=== PATIENT | female | born 1990 | race Caucasian/White ===

== ENCOUNTER 2018-03-23 08:03 | Emergency (ER) | payer BC ==
--- NOTE | 2018-03-23 08:22 | CPEKG ---
Heart Rate: 87 RR Interval: 690 P-R Interval: 156 QRSD Interval: 84 QT Interval: 392 QTC Interval: 472 P Monon: 50 QRS Monon: 81 T Wave Monon: 55 EKG Severity - NORMAL ECG - EKG Impression: SINUS RHYTHM Electronically Signed By: Manny Walters 26-Mar-2018 07:27:55
[2018-03-23] MEDS ORDERED: LIDOCAINE 2% VISCOUS 15 ML UDCUP PO ONE (08:24)
[2018-03-23] MEDS ORDERED: HYOSCYAMINE SULFATE 0.125 MG TAB PO ONE (08:24)
[2018-03-23] MEDS ORDERED: MAG HYDROX/AL HYDROX/SIMETH 30 ML UDCUP PO ONE (08:24)
--- NOTE | 2018-03-23 08:28 | EDPHY ---
H & P Time Seen by Provider: 03/23/18 08:18 HPI/ROS: CHIEF COMPLAINT: Chest pain HISTORY OF PRESENT ILLNESS: Patient is a 28-year-old female who presents emergency department with substernal chest pain. Patient states that she is visiting from [place]. She is currently med student. She came out to [place] for wedding. Last night at about 4:00 a.m. She awoke from sleep with substernal chest discomfort. She states it initially worsened when she lays on her left side and would improved when she lays on her back. However, it soon became constant. She describes epigastric and substernal discomfort that is mild. It is not worse with movement. It is not worse with deep breath. She denies any cough, fever or shortness of breath. She has a history of asthma but this feels different. No leg pain or swelling. Patient traveled here from [place] by plane. REVIEW OF SYSTEMS: My complete review of systems is negative except as mentioned in the HPI. Past Medical/Surgical History: Includes asthma, depression Past surgical history: Negative Social history: Patient does not smoke. She drinks alcohol rarely but did drink at the wedding last evening. Family history: Patient's father had an aneurysm. He may have Marfan syndrome but he does not look marfanoid per the patient. Smoking Status: Never smoked Physical Exam: Vitals noted GENERAL: Well-appearing, in no acute distress, alert. HEENT: Eyes normal to inspection, normal pharynx, no signs of dehydration. NECK: No thyromegaly, no lymphadenopathy, supple. RESPIRATORY: Clear to auscultation bilaterally, no rales, rhonchi or wheezing. CVS: Regular rate and rhythm, no rubs, murmurs, or gallops. ABDOMEN: Soft, epigastric tenderness to palpation with no rebound or guarding, nondistended, no organomegaly. BACK: Normal to inspection, no CVA tenderness. SKIN: Normal color, no rash, warm, dry. No pallor. EXTREMITIES: No pedal edema, no calf tenderness, no Homans sign or cords, no joint swelling. NEURO/PSYCH: Alert and oriented x3, normal mood and affect, normal motor sensory exam. No obvious cranial nerve deficit. Constitutional: Initial Vital Signs Temperature (C) 36.8 C 03/23/18 08:09 Heart Rate 95 03/23/18 08:09 Respiratory Rate 16 03/23/18 08:09 Blood Pressure 120/84 H 03/23/18 08:09 O2 Sat (%) 98 03/23/18 08:09 O2 Delivery Mode Room Air Allergies/Adverse Reactions: No Known Allergies Allergy (Unverified 03/23/18 08:13) Home Medications: Medication Instructions Recorded Hydrocodone/APAP 5/325 [[place] 1 - 2 tab PO Q4 #7 tab 03/23/18 5/325 (RX)] buPROPion XL 03/23/18 Medical Decision Making - Diagnostics Imaging Results: Imaging Impressions Chest X-Ray 03/23/18 08:25 Impression: No acute findings in the chest. ED Course/Re-evaluation: In the emergency department I discussed possible etiologies with the patient. I answered all her questions. Patient was given a GI cocktail. Laboratory studies, EKG and chest x-ray were ordered. EKG shows normal sinus rhythm, normal rate, normal axis, normal intervals. There are no ST or T-wave abnormalities. EKG is normal as interpreted by me. Chest x-ray: Please refer the dictated report. The aorta appears normal. There is no wide mediastinum. I reviewed the patient's laboratory studies. CBC and chemistry unremarkable. D -dimer was negative. Troponin was 0. Lipase and LFTs were normal. On recheck the patient's symptoms were improved although she still had some epigastric discomfort. I gave patient warnings prior to leaving. She will return with worsening symptoms. Differential Diagnosis: My differential includes but is not limited to ACS, acute MO, pulmonary embolus , aneurysm, dissection, pericarditis, myocarditis, pancreatitis, cholecystitis, GERD, peptic ulcer disease - Data Points Laboratory Results: Laboratory Results 03/23/18 08:40 03/23/18 08:40 03/23/18 03/23/18 03/23/18 08:40 08:40 08:40 WBC RBC Hgb Hct MCV MCH MCHC RDW Plt Count MPV Neut % (Auto) Lymph % (Auto) Brule % (Auto) Eos % (Auto) Baso % (Auto) Nucleat RBC Rel Count Absolute Neuts (auto) Absolute Lymphs (auto) Absolute Monos (auto) Absolute Eos (auto) Absolute Basos (auto) Absolute Nucleated RBC Immature Gran % Immature Gran # D-Dimer < 0.27 ug/mLFEU ug/mLFEU (0.00-0.50) Sodium Potassium Chloride Carbon Dioxide Anion Gap BUN Creatinine Estimated GFR Glucose Calcium Total Bilirubin Conjugated Bilirubin Unconjugated Bilirubin AST ALT Alkaline Phosphatase POC Troponin I 0.00 ng/mL ng/mL (0.00-0.08) Total Protein Albumin Lipase Beta HCG, Qual NEGATIVE 03/23/18 03/23/18 08:40 08:40 WBC 10.26 10^3/uL H 10^3/uL (3.80-9.50) RBC 4.45 10^6/uL 10^6/uL (4.18-5.33) Hgb 13.1 g/dL g/dL (12.6-16.3) Hct 38.5 % % (38.0-47.0) MCV 86.5 fL fL (81.5-99.8) MCH 29.4 pg pg (27.9-34.1) MCHC 34.0 g/dL g/dL (32.4-36.7) RDW 13.5 % % (11.5-15.2) Plt Count 275 10^3/uL 10^3/uL (150-400) MPV 11.4 fL fL (8.7-11.7) Neut % (Auto) 79.7 % H % (39.3-74.2) Lymph % (Auto) 10.6 % L % (15.0-45.0) Brule % (Auto) 8.8 % % (4.5-13.0) Eos % (Auto) 0.0 % L % (0.6-7.6) Baso % (Auto) 0.3 % % (0.3-1.7) Nucleat RBC Rel Count 0.0 % % (0.0-0.2) Absolute Neuts (auto) 8.18 10^3/uL H 10^3/uL (1.70-6.50) Absolute Lymphs (auto) 1.09 10^3/uL 10^3/uL (1.00-3.00) Absolute Monos (auto) 0.90 10^3/uL H 10^3/uL (0.30-0.80) Absolute Eos (auto) 0.00 10^3/uL L 10^3/uL (0.03-0.40) Absolute Basos (auto) 0.03 10^3/uL 10^3/uL (0.02-0.10) Absolute Nucleated RBC 0.00 10^3/uL 10^3/uL (0-0.01) Immature Gran % 0.6 % % (0.0-1.1) Immature Gran # 0.06 10^3/uL 10^3/uL (0.00-0.10) D-Dimer Sodium 141 mEq/L mEq/L (135-145) Potassium 4.0 mEq/L mEq/L (3.3-5.0) Chloride 105 mEq/L mEq/L (97-110) Carbon Dioxide 25 mEq/l mEq/l (22-31) Anion Gap 11 mEq/L mEq/L (8-16) BUN 15 mg/dL mg/dL (7-23) Creatinine 0.9 mg/dL mg/dL (0.6-1.0) Estimated GFR > 60 Glucose 87 mg/dL mg/dL (70-100) Calcium 8.9 mg/dL mg/dL (8.5-10.4) Total Bilirubin 0.5 mg/dL mg/dL (0.1-1.4) Conjugated Bilirubin 0.4 mg/dL mg/dL (0.0-0.5) Unconjugated Bilirubin 0.1 mg/dL mg/dL (0.0-1.1) AST 26 IU/L IU/L (14-46) ALT 33 IU/L IU/L (9-52) Alkaline Phosphatase 86 IU/L IU/L (38-126) POC Troponin I Total Protein 6.4 g/dL g/dL (6.3-8.2) Albumin 3.9 g/dL g/dL (3.5-5.0) Lipase 33 IU/L IU/L (23-300) Beta HCG, Qual Medications Given: Discontinued Medications Al Hydroxide/Mg Hydroxide (Maalox Susp) 30 ml PO ONCE ONE Stop: 03/23/18 08:25 Last Admin: 03/23/18 08:40 Dose: 30 ml Hyoscyamine Sulfate (Levsin, Hyomax-Sl) 0.25 mg PO ONCE ONE Stop: 03/23/18 08:25 Last Admin: 03/23/18 08:39 Dose: 0.25 mg Lidocaine (Lidocaine 2% Viscous) 15 ml PO ONCE ONE Stop: 03/23/18 08:25 Last Admin: 03/23/18 08:40 Dose: 15 ml Point of Care Test Results: Chemistry 03/23/18 08:40 POC Troponin I 0.00 ng/mL ng/mL (0.00-0.08) Departure - Departure Disposition: Home, Routine, Self-Care Clinical Impression: Epigastric pain Chest pain Qualifiers: Chest pain type: unspecified Qualified Code(s): R07.9 - Chest pain, unspecified Condition: Good Instructions: Chest Pain (ED), Acute Abdominal Pain (ED) Additional Instructions: Return with increasing pain, shortness of breath, fever, or any other concerns. Continue to take Pepcid daily for the next 3-5 days. Referrals: NONE *PRIMARY CARE P,. [Primary Care Provider] - As per Instructions Prescriptions: Hydrocodone/APAP 5/325 [[place] 5/325 (RX)] 1 - 2 tab PO Q4 #7 tab
[2018-03-23 09:00] LABS: PLATELET COUNT 275 10^3/uL (150-400)
[2018-03-23 09:46] VITALS: BP 124/89
== END 2018-03-23 09:44 | disposition home or self-care (01) ==
DX: R07.9 Chest pain, unspecified (principal); R10.13 Epigastric pain; J45.909 Unspecified asthma, uncomplicated
CPT/HCPCS: 84484-PO